=== PATIENT | female | born 2000 ===

== ENCOUNTER 2020-09-11 06:55 | Emergency (ER) | payer MEDICAID ==
[~2020-09-11] VITALS: Ht 170.2 cm; Wt 61.2 kg
[2020-09-11] MEDS ORDERED: IV NORMAL SALINE 1000 ML BAG IV ONE (07:00)
[2020-09-11 07:09] LABS: HEMATOCRIT 38.3 % (31.2-41.9); MEAN CORPUSCULAR HEMOGLOBIN 31.8 uug (24.7-32.8); MEAN CORPUSCULAR VOLUME 94.8 fL (75.5-95.3); PLATELET COUNT (AUTO) 242 K/uL (179-408)
[2020-09-11 07:22] LABS: ALANINE AMINOTRANSFERASE 34 U/L (14-59); ALKALINE PHOSPHATASE 89 U/L (50-136); ASPARTATE AMINOTRANSFERASE 30 U/L (15-37); BILIRUBIN,DIRECT 0.1 mg/dL (0.0-0.2); BILIRUBIN,TOTAL 0.2 mg/dL (0.2-1.0); CARBON DIOXIDE 24 mmol/L (21-32); CHLORIDE 107 mmol/L (98-107); CREATININE 0.5 mg/dL (0.6-1.3); GLUCOSE 109 mg/dL (74-106); POTASSIUM 3.6 mmol/L (3.5-5.1); TOTAL PROTEIN, SERUM 7.1 g/dL (6.4-8.2); UREA NITROGEN, BLOOD 6 mg/dL (7-18)
[2020-09-11 07:28] LABS: ACETAMINOPHEN < 2.0 ug/mL (10-30)
[2020-09-11 07:35] LABS: *BILIRUBIN,URIN NEGATIVE (NEGATIVE); *BLOOD, URINE NEGATIVE (NEGATIVE); *CLARITY,URINE CLEAR (CLEAR); *COLOR,URINE YELLOW (YELLOW); *KETONES,URINE NEGATIVE (NEGATIVE); *URINE HCG, QUAL NEG (NEGATIVE); *UROBILINOGEN,URINE 0.2 E.U./dl (NORMAL); LEUKOCYTE ESTERASE ,URINE NEGATIVE (NEGATIVE); NITRITE, URINE NEGATIVE (NEGATIVE); UGLUCOSE NEGATIVE (NEGATIVE)
[2020-09-11 07:39] LABS: ETHANOL 373 MG/DL (0-0)
[2020-09-11 07:41] LABS: *AMPHETAMINE, URINE NEGATIVE (NEGATIVE); *CANNABINOID, URINE NEGATIVE (NEGATIVE); *COCCAINE, URINE NEGATIVE (NEGATIVE); *OPIATE, URINE NEGATIVE (NEGATIVE); *PHENCYCLIDINE SCREEN,URINE NEGATIVE (NEGATIVE)
--- NOTE | 2020-09-11 07:45 | NUR ---
PENDING CT PT STILL ASLEEP STABLE VITALS
[2020-09-11] MEDS ORDERED: IV D5W-0.45% NS 1000 ML BAG IV ONE (08:00)
[2020-09-11] MEDS ORDERED: ONDANSETRON 4 MG/2 ML VIAL IV ONE (08:00)
--- NOTE | 2020-09-11 08:27 | NUR ---
back from CT. pt asleep, rousable NAD VS RA SRx2 up bed at lowest position monitored accordingly with LAC IV saline lock intact and infusing well
[2020-09-11] MEDS ORDERED: ONDANSETRON 4 MG/2 ML VIAL ONE (08:29)
--- NOTE | 2020-09-11 10:15 | NUR ---
Dr Friedman called (psychiatric) Ok to admit for : dx:ETOH toxicity/ encephalopathy, covid + Called for Tele bed, pending availability
--- NOTE | 2020-09-11 10:26 | NUR ---
Attempted to call for Report Tele Bed 320 RN Kelsea Flr states they will call back
--- NOTE | 2020-09-11 11:00 | NUR ---
Patient awake, ambulatory with stable gait, crying and asking for her sister. Patient requesting to AMA and be picked up by sister.
--- NOTE | 2020-09-11 11:30 | NUR ---
pt requested IV to be removed. IV Lac g18 removed at this time, dressed
--- NOTE | 2020-09-11 11:55 | NUR ---
Patient does not wish to proceed with medical care recommended by Dr. Pisano. Patient given information related to possible complications, up to and including , which could occur as a result of leaving the hospital at this time. Patient verbalizes understanding of risks involved due to leaving against medical advice. Patient has signed AMA form.
[2020-09-11 11:57] VITALS: BP 90/60
== END 2020-09-11 12:00 | disposition left against medical advice (07) ==
LOC: ER 06:58 → UNDOADMIN 11:08 → TELE3 11:08
DX: T51.0X1A Toxic effect of ethanol, accidental (unintentional), initial encounter (principal); G92 Toxic encephalopathy; Y92.89 Other specified places as the place of occurrence of the external cause; U07.1 COVID-19; R00.0 Tachycardia, unspecified
CPT/HCPCS: 36415; 70450; 71045; 80048; 80076; 80299; 80307; 80320; 81003; 83690; 84703; 85025; 87426; 93005; 96361; 96374; 99285; J2405; J3490; A4663; C1758; G0480; J7030